=== PATIENT | female | born 1985 | race Caucasian/White ===

== ENCOUNTER 2019-04-24 15:47 | Emergency (ER) | payer BC ==
[2019-04-24] MEDS ORDERED: Sodium Chloride 0.9% 10 ML Syringe FLUSH PRN (16:12)
[2019-04-24] MEDS ORDERED: Sodium Chloride 0.9% 1,000 ML IV ONE (16:12)
[2019-04-24] MEDS ORDERED: Ondansetron 4 MG/2 ML SDV IVPUSH ONE (16:12)
--- NOTE | 2019-04-24 16:18 | EDM.PDOC ---
ED HPI GENERAL MEDICAL PROBLEM - General Chief Complaint: INTRAVENOUS THERAPY NURSE Problem Stated Complaint: 6 WEEKS PREG, DEHYDRATED Time Seen by Provider: 04/24/19 15:55 Source of Information: Reports: Patient, RN Notes Reviewed History Limitations: Reports: No Limitations - History of Present Illness INITIAL COMMENTS - FREE TEXT/NARRATIVE: Patient is a 34-year-old female who presents to the ED for the evaluation of being 6 weeks and possible dehydration. Patient states she is , this is her first . She is following with Dr. Amanda Desouza for OB. Patient notes she is around 6 weeks , and has had some portable morning sickness, she is not able to keep much for foods or fluids down. She has been trying [id number] remedies such as peppermint oil, aromatherapy, vitamin B6 and derik, none of which seem to be helping much at all. Patient states she is not having any sort of pain in her abdomen, and she is not having any sign of vaginal bleeding or urinary issues. Patient states she was in fairly good health up until the , and this has been quite rough on her. She notes she has a follow-up appointment with Dr. Desouza next week, for early OB check. Patient denies any fevers or chills that she's been having, any chest pain or shortness of breath. Left Abdominal Pain Score (Numeric/FACES): 2 - Related Data Allergies Allergy/AdvReac Type Severity Reaction Status Date / Time codeine Allergy Rash Verified 04/24/19 15:57 levothyroxine Allergy Rash Verified 04/24/19 15:57 Sulfa (Sulfonamide Allergy Rash Verified 04/24/19 15:57 Antibiotics) Home Meds: Home Meds Levothyroxine [Synthroid] 100 mcg PO DAILY 04/24/19 [History] Ondansetron [Zofran ODT] 4 mg PO Q8H PRN #21 tab.dis 04/24/19 [Rx] Pnv No.95/Ferrous Fum/Folic AC [ Multivitamin Tablet] 1 tab PO DAILY [History] Sertraline [Zoloft] 200 mg PO DAILY 04/24/19 [History] valACYclovir HCl [Valtrex] 500 pack PO DAILY 04/24/19 [History] Past Medical History INTRAVENOUS THERAPY NURSE History: Reports: Fibroids Musculoskeletal History: Reports: Other (See Below) Other Musculoskeletal History: r knee acl Endocrine/Metabolic History: Reports: Hypothyroidism - Past Surgical History HEENT Surgical History: Reports: VALERIAIK Social & Family History - Tobacco Use Smoking Status *Q: Never Smoker Second Hand Smoke Exposure: No - Caffeine Use Caffeine Use: Reports: Coffee, Energy Drinks, Soda - Recreational Drug Use Recreational Drug Use: No ED ROS GENERAL - Review of Systems Review Of Systems: See Below Constitutional: Reports: Decreased Appetite (d/t nausea and vomiting). Denies: Fever, Chills Respiratory: Denies: Shortness of Breath Cardiovascular: Denies: Chest Pain GI/Abdominal: Reports: Decreased Appetite, Nausea, Vomiting. Denies: Abdominal Pain, Constipation, Diarrhea, Hematemesis : Denies: Discharge, Dysuria, Pain Neurological: Denies: Dizziness ED EXAM - Physical Exam Exam: See Below Exam Limited By: No Limitations General Appearance: Alert, WD/WN, No Apparent Distress Eye Exam: Bilateral Eye: EOMI, Normal Inspection, PERRL Throat/Mouth: Normal Inspection, Normal Lips, Normal Teeth, Normal Gums, Normal Oropharynx, Normal Voice, No Airway Compromise Head: Atraumatic, Normocephalic Neck: Normal Inspection Respiratory/Chest: No Respiratory Distress, Lungs Clear, Normal Breath Sounds, No Accessory Muscle Use, Chest Non-Tender Cardiovascular: Normal Peripheral Pulses, Regular Rate, Rhythm, No Edema, No Murmur GI/Abdominal Exam: Normal Bowel Sounds, Soft, Non-Tender, No Distention, No Mass Heart Tones: Not Stewart Movement: Not Appreciated Extremities: Normal Inspection, Normal Capillary Refill Neurological: Alert, Oriented, Normal Cognition, No Motor/Sensory Deficits Psychiatric: Normal Affect, Normal Mood Skin Exam: Warm, Dry, Intact, Normal Color, No Rash Course - Vital Signs Last Recorded V/S: Last Vital Signs Temp 98.0 F 04/24/19 15:55 Pulse 71 04/24/19 15:55 Resp 17 04/24/19 15:55 BP 142/87 H 04/24/19 15:55 Pulse Ox 100 04/24/19 15:55 - Orders/Labs/Meds Orders: Active Orders 24 hr Category Date Time Status Peripheral IV Care [RC] . DIRECTED Care 04/24/19 16:12 Ordered Sodium Chloride 0.9% [Saline Flush] Med 04/24/19 16:12 Ordered 10 ml FLUSH ASDIRECTED PRN Peripheral IV Insertion Adult [OM.PC] Stat Oth 04/24/19 16:12 Ordered Medication Orders Sodium Chloride (Saline Flush) 10 ml FLUSH ASDIRECTED PRN PRN Reason: Keep Vein Open Last Admin: 04/24/19 16:21 Dose: 10 ml Labs: Laboratory Tests 04/24/19 04/24/19 04/24/19 Range/Units 16:11 16:11 16:23 WBC 7.38 (3.98-10.04) K/mm3 RBC 4.27 (3.98-5.22) M/mm3 Hgb 14.2 (11.2-15.7) gm/dl Hct 40.0 (34.1-44.9) % MCV 93.7 (79.4-94.8) fl MCH 33.3 H (25.6-32.2) pg MCHC 35.5 (32.2-35.5) g/dl RDW Std Deviation 39.5 (36.4-46.3) fL Plt Count 261 (182-369) K/mm3 MPV 9.7 (9.4-12.3) fl Neut % (Auto) 57.7 (34.0-71.1) % Lymph % (Auto) 27.6 (19.3-51.7) % [place] % (Auto) 13.7 H (4.7-12.5) % Eos % (Auto) 0.5 L (0.7-5.8) Baso % (Auto) 0.4 (0.1-1.2) % Neut # (Auto) 4.25 (1.56-6.13) K/mm3 Lymph # (Auto) 2.04 (1.18-3.74) K/mm3 [place] # (Auto) 1.01 H (0.24-0.36) K/mm3 Eos # (Auto) 0.04 (0.04-0.36) K/mm3 Baso # (Auto) 0.03 (0.01-0.08) K/mm3 Sodium 137 (136-145) mEq/L Potassium 3.2 L (3.5-5.1) mEq/L Chloride 103 (98-107) mEq/L Carbon Dioxide 25 (21-32) mEq/L Anion Gap 12.2 (5-15) BUN 15 (7-18) mg/dL Creatinine 0.7 (0.55-1.02) mg/dL Est Cr Clr Drug Dosing 116.11 mL/min Estimated GFR (MDRD) > 60 (>60) mL/min BUN/Creatinine Ratio 21.4 H (14-18) Glucose 88 (74-106) mg/dL Calcium 8.8 (8.5-10.1) mg/dL Total Bilirubin 0.3 (0.2-1.0) mg/dL AST 55 H (15-37) U/L ALT 107 H (14-59) U/L Alkaline Phosphatase 43 L (46-116) U/L Total Protein 7.8 (6.4-8.2) g/dl Albumin 4.1 (3.4-5.0) g/dl Globulin 3.7 gm/dL Albumin/Globulin Ratio 1.1 (1-2) Urine Color Yellow (Yellow) Urine Appearance Clear (Clear) Urine pH 5.5 (5.0-8.0) Ur Specific [place] > or = 1.030 (1.005-1.030) Urine Protein Negative (Negative) Urine Glucose (UA) Negative (Negative) Urine Ketones Negative (Negative) Urine Occult Blood Negative (Negative) Urine Nitrite Negative (Negative) Urine Bilirubin 1+ H (Negative) Urine Urobilinogen 0.2 (0.2-1.0) Ur Leukocyte Esterase Negative (Negative) Urine RBC 0-5 (0-5) /hpf Urine WBC 0-5 (0-5) /hpf Ur Epithelial Cells 0-5 (0-5) /hpf Urine Bacteria Not seen (FEW) /hpf Urine Mucus Not seen (FEW) /hpf Meds: Medications Generic Name Dose Route Start Last Admin Trade Name Freq PRN Reason Stop Dose Admin Sodium Chloride 10 ml 04/24/19 16:12 04/24/19 16:21 Saline Flush FLUSH 10 ml ASDIRECTED PRN Administration Keep Vein Open Discontinued Medications Generic Name Dose Route Start Last Admin Trade Name Freq PRN Reason Stop Dose Admin Sodium Chloride 1,000 mls @ 999 mls/hr 04/24/19 16:12 04/24/19 16:21 Normal Saline IV 04/24/19 17:12 999 mls/hr ONETIME ONE Administration Ondansetron HCl 4 mg 04/24/19 16:12 04/24/19 16:21 Zofran IVPUSH 04/24/19 16:13 4 mg ONETIME ONE Administration - Re-Assessments/Exams Free Text/Narrative Re-Assessment/Exam: 04/24/19 16:18 Patient presents to the ED for possible dehydration and being 6 weeks . Did order IV to be placed, with urinalysis, CBC and CMP for initial evaluation. I do believe this to be due to morning sickness in nature. Will give 4 mg of Zofran for initial nausea management. Will likely send the patient home with a few tabs of this so she can get through the weekend, and then have her follow up with Dr. Desouza next week. 04/24/19 17:32 Patient's labs are back, and demonstrate no focal abnormalities. Potassium was mildly low, but should be able to be regulated by diet. Will send the patient home with some Zofran, and have her follow-up with Dr. Desouza next week. Departure - Departure Time of Disposition: 17:33 Disposition: Home, Self-Care 01 Condition: Fair Clinical Impression: Nausea and vomiting during - Discharge Information *PRESCRIPTION DRUG MONITORING PROGRAM REVIEWED*: No *COPY OF PRESCRIPTION DRUG MONITORING REPORT IN PATIENT VIPUL: No Prescriptions: Ondansetron [Zofran ODT] 4 mg PO Q8H PRN #21 tab.dis PRN Reason: Nausea Instructions: Morning Sickness, [id number] Referrals: Amanda Desouza MD [Primary Care Provider] - Forms: ED Department Discharge Additional Instructions: You were evaluated in the ER today regarding your nausea and vomiting in . You were treated with a liter of fluids, and 4 mg Zofran for nausea management. This did seem to help relieve your symptoms. You have been given a prescription for Zofran, please take one tab dissolvable under your tongue every 8 hours as needed for further nausea relief. Do not exceed 3 doses in a 24-hour time span. Your laboratory evaluation demonstrated that you potassium is mildly low, that you can try to eat some bananas or other foods high in potassium over the next day or 2 to help increase this. Please keep your appointment with Dr. Desouza next week, and follow up with her if needed. Please return to the ER at any time if your symptoms change or worsen. Sepsis Event Note - Evaluation Sepsis Screening Result: No Definite Risk - Focused Exam Vital Signs: Vital Signs Temp Pulse Resp BP Pulse Ox 04/24/19 15:55 98.0 F 71 17 142/87 H 100 Date Exam was Performed: 04/24/19 Time Exam was Performed: 17:32 - My Orders Last 24 Hours: My Active Orders 04/24/19 16:12 Peripheral IV Care [RC] . DIRECTED Sodium Chloride 0.9% [Saline Flush] 10 ml FLUSH ASDIRECTED PRN Peripheral IV Insertion Adult [OM.PC] Stat - Assessment/Plan Last 24 Hours: My Active Orders 04/24/19 16:12 Peripheral IV Care [RC] . DIRECTED Sodium Chloride 0.9% [Saline Flush] 10 ml FLUSH ASDIRECTED PRN Peripheral IV Insertion Adult [OM.PC] Stat
== END 2019-04-24 18:19 | disposition home or self-care (01) ==
LOC: JD.ED 15:47
DX: O21.9 Vomiting of pregnancy, unspecified (principal); O09.511 Supervision of elderly primigravida, first trimester; O99.281 Endocrine, nutritional and metabolic diseases complicating pregnancy, first trimester; E03.9 Hypothyroidism, unspecified; Z79.890 Hormone replacement therapy; Z88.5 Allergy status to narcotic agent; Z88.8 Allergy status to other drugs, medicaments and biological substances; Z88.2 Allergy status to sulfonamides; Z3A.01 Less than 8 weeks gestation of pregnancy
CPT/HCPCS: 36415; 80053; 81001; 85025; 96361; 96374; 99284; J2405; J7030; 99283

== ENCOUNTER 2019-05-29 02:28 | Emergency (ER) | payer BC ==
[2019-05-29] MEDS ORDERED: Ondansetron 4 MG/2 ML SDV IVPUSH ONE (02:50)
--- NOTE | 2019-05-29 02:51 | EDM.PDOC ---
ED HPI GENERAL MEDICAL PROBLEM - General Chief Complaint: Gastrointestinal Problem Stated Complaint: 11 WKS PG VOMITING/DIARRHEA Time Seen by Provider: 05/29/19 02:45 Source of Information: Reports: Patient History Limitations: Reports: No Limitations - History of Present Illness INITIAL COMMENTS - FREE TEXT/NARRATIVE: 34-year-old female presents the ED with acute onset of nausea and vomiting and diarrhea starting about 1600 hrs. 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 Diarrhea came first and she's had about 3 loose watery stools and then started vomiting precipitously. She has been a keep anything down for the last 12 hours. He is 11 weeks 5 days . Didn't dizzy. Nausea is constant. She thought at first it might be just morning sickness but recognize that it's more severe than morning sickness. No hematemesis is occurred no blood in the diarrhea. Mild diffuse abdominal tenderness. Feels lightheaded dizzy and weak. No fever or chills. Has not had any diarrhea in the last 8 hours. Onset: Sudden Onset Date: 05/28/19 Onset Time: 16:00 Duration: Hour(s):, Getting Worse Location: Reports: Abdomen (Intractable nausea and vomiting. 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 Denies: Activity, Exercise (Vomiting worsens or she tries to eat at all.), Lifting, Trauma Associated Symptoms: Reports: Loss of Appetite, Malaise, Nausea/Vomiting, Other (Bilious emesis without blood loose yellow watery diarrhea without). 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 none.) - Related Data Allergies Allergy/AdvReac Type Severity Reaction Status Date / Time codeine Allergy Rash Verified 05/29/19 02:41 levothyroxine Allergy Rash Verified 05/29/19 02:41 Sulfa (Sulfonamide Allergy Rash Verified 05/29/19 02:41 Antibiotics) Home Meds: Home Meds Levothyroxine [Synthroid] 100 mcg PO DAILY 04/24/19 [History] Ondansetron [Zofran ODT] 4 mg PO Q8H PRN #21 tab.dis 04/24/19 [Rx] Pnv No.95/Ferrous Fum/Folic AC [ Multivitamin Tablet] 1 tab PO DAILY [History] Sertraline [Zoloft] 200 mg PO DAILY 04/24/19 [History] valACYclovir HCl [Valtrex] 500 pack PO DAILY 04/24/19 [History] Ondansetron [Zofran] 4 mg BUCCAL Q6H PRN #10 tab 05/29/19 [Rx] 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, : 1 Para: 0 LMP (Approximate): Other (See Below) (Currently 11 weeks 5 days .) Musculoskeletal History: Reports: Other (See Below) Other Musculoskeletal History: r knee acl Endocrine/Metabolic History: Reports: Hypothyroidism - Past Surgical History HEENT Surgical History: Reports: ZAHIDA Social & Family History - Caffeine Use Caffeine Use: Reports: Coffee, Energy Drinks, Soda - Living Situation & Occupation Living situation: Reports: 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 Denies: Fever HEENT: Reports: No Symptoms Respiratory: Reports: No Symptoms Cardiovascular: Reports: Dyspnea on Exertion Endocrine: Reports: Fatigue GI/Abdominal: Reports: Abdominal Pain (Intermittent mild crampy abdominal pain.) , Diarrhea, Nausea (Loose yellow watery diarrhea 3. Nothing in the last 8 hours ), Vomiting (Moisés nausea and intermittent vomiting she tries to eat at all. Emesis is bilious.) : Reports: Frequency Musculoskeletal: Reports: Muscle Pain Skin: Reports: No Symptoms (Mild generalized myalgia.) Neurological: Reports: Dizziness (Dizzy and lightheaded with standing.) Psychiatric: Reports: No Symptoms Hematologic/Lymphatic: Reports: No Symptoms Immunologic: Reports: No Symptoms ED EXAM, GI/ABD - Physical Exam Exam: See Below Exam Limited By: No Limitations General Appearance: Alert, WD/WN, Mild Distress, Other (Vital signs show temperature 36.6. Heart rate is 74 in sinus. BP 1 3479. Respiratory is 18 with O2 sats of 99% on room air.) Eyes: Bilateral: Normal Appearance (No scleral icterus and no peripheral pallor. ) Throat/Mouth: Normal Inspection, Normal Lips, Normal Teeth, Normal Oropharynx Head: Atraumatic, Normocephalic Neck: Normal Inspection, Supple, Non-Tender, Full Range of Motion. No: Lymphadenopathy (L), Lymphadenopathy (R) Respiratory/Chest: No Respiratory Distress, Lungs Clear, Normal Breath Sounds, No Accessory Muscle Use, Chest Non-Tender Cardiovascular: Normal Peripheral Pulses, Regular Rate, Rhythm, No Edema, No Gallop, No Murmur, No Rub GI/Abdominal Exam: Soft, Non-Tender (Mildly hyperactive bowel sounds all 4 quadrants.), No Organomegaly, No Abnormal Bruit, No Mass, Pelvis Stable, Abnormal Bowel Sounds, Other (No palpable uterus in the abdomen.) Extremities: Normal Inspection, Normal Range of Motion, Non-Tender Neurological: Alert, Oriented, CN II-XII Intact, Normal Cognition Psychiatric: Normal Affect, Normal Mood Skin Exam: Warm, Dry, Intact, Normal Color, No Rash Course - Vital Signs Last Recorded V/S: Last Vital Signs Temp 36.6 C 05/29/19 02:35 Pulse 74 05/29/19 02:35 Resp 18 05/29/19 02:35 BP 134/79 05/29/19 02:35 Pulse Ox 99 05/29/19 02:35 - Orders/Labs/Meds Orders: Active Orders 24 hr Category Date Time Status Dextrose 5%-Lactated Ringers 1,000 ml Med 05/29/19 03:00 Active IV ASDIRECTED Medication Orders Dextrose/Lactated Ringer's (Dextrose 5%-Lactated Ringers) 1,000 mls @ 999 mls/ hr IV ASDIRECTED NANDINI Last Admin: 05/29/19 03:00 Dose: 999 mls/hr Labs: Laboratory Tests 05/29/19 05/29/19 Range/Units 02:58 02:58 WBC 11.68 H (3.98-10.04) K/mm3 RBC 4.35 (3.98-5.22) M/mm3 Hgb 14.5 (11.2-15.7) gm/dl Hct 41.1 (34.1-44.9) % MCV 94.5 (79.4-94.8) fl MCH 33.3 H (25.6-32.2) pg MCHC 35.3 (32.2-35.5) g/dl RDW Std Deviation 40.9 (36.4-46.3) fL Plt Count 263 (182-369) K/mm3 MPV 9.7 (9.4-12.3) fl Neut % (Auto) 88.7 H (34.0-71.1) % Lymph % (Auto) 4.2 L (19.3-51.7) % [place] % (Auto) 6.7 (4.7-12.5) % Eos % (Auto) 0.1 L (0.7-5.8) Baso % (Auto) 0.1 (0.1-1.2) % Neut # (Auto) 10.37 H (1.56-6.13) K/mm3 Lymph # (Auto) 0.49 L (1.18-3.74) K/mm3 [place] # (Auto) 0.78 H (0.24-0.36) K/mm3 Eos # (Auto) 0.01 L (0.04-0.36) K/mm3 Baso # (Auto) 0.01 (0.01-0.08) K/mm3 Manual Slide Review Abnormal smear Sodium 138 (136-145) mEq/L Potassium 3.4 L (3.5-5.1) mEq/L Chloride 102 (98-107) mEq/L Carbon Dioxide 23 (21-32) mEq/L Anion Gap 16.4 H (5-15) BUN 19 H (7-18) mg/dL Creatinine 0.7 (0.55-1.02) mg/dL Est Cr Clr Drug Dosing 116.11 mL/min Estimated GFR (MDRD) > 60 (>60) mL/min BUN/Creatinine Ratio 27.1 H (14-18) Glucose 110 H (74-106) mg/dL Calcium 8.7 (8.5-10.1) mg/dL Total Bilirubin 0.6 (0.2-1.0) mg/dL AST 17 (15-37) U/L ALT 28 (14-59) U/L Alkaline Phosphatase 44 L (46-116) U/L Total Protein 7.4 (6.4-8.2) g/dl Albumin 3.7 (3.4-5.0) g/dl Globulin 3.7 gm/dL Albumin/Globulin Ratio 1.0 (1-2) Meds: Medications Generic Name Dose Route Start Last Admin Trade Name Louisa PRN Reason Stop Dose Admin Dextrose/Lactated Ringer's 1,000 mls @ 999 mls/hr 05/29/19 03:00 05/29/19 03: 00 Dextrose 5%-Lactated Ringers IV 999 mls/hr ASDIRECTED NANDINI Administration Discontinued Medications Generic Name Dose Route Start Last Admin Trade Name Louisa PRN Reason Stop Dose Admin Ondansetron HCl 4 mg 05/29/19 02:50 05/29/19 03:01 Zofran IVPUSH 05/29/19 02:51 4 mg ONETIME ONE Administration - Radiology Interpretation Free Text/Narrative:: 84-year-old female who is 1 para 0 at 11 weeks and 5 days presents to the ED with acute onset of nausea vomiting and diarrhea since 1600 hrs. yesterday afternoon. Her is also in the department with similar type illness. Became ill first. Likely they both appear to have viral gastroenteritis. Then she'll be rehydrated with D5 Ringer's lactate at open. Given Zofran 4 mg IV to arrest vomiting. Routine labs to be obtained. - Re-Assessments/Exams Free Text/Narrative Re-Assessment/Exam: 05/29/19 03:43 White count is 11.68 with slight left shift of 88.7% neutrophils on the auto differential. Hemoglobin is 14.5 with hematocrit of 41.1. Platelet count 263,000. Sodium 138 with potassium slightly low at 3.4. Chloride 102 with a bicarbonate 23. Anion gap is 16.4. BUN 19 with a creatinine of 0.7. GFR remains greater than 60. Glucose 110. Calcium 8.7. Liver function normal. Total protein 7.4 albumin fraction of 3.7. 05/29/19 03:59 she reports she's feeling much better. No further nausea. The cramping in her abdomen. Lab work turned out to be normal. Patient reassured in this regard. She'll stick to clear fluid diet for the next 12-24 hours and avoid dairy products and no apple juice or grape juice until stools are formed back up. Prescription written for Zofran 4 mg sublingual every 4-6 hours. As needed for relief of nausea vomiting. Return to the ED if vomiting continues in spite of medication in the next 24 hours. Departure - Departure Time of Disposition: 04:00 Disposition: Home, Self-Care 01 Condition: Fair Clinical Impression: Viral gastroenteritis, Diarrhea, Vomiting, Gastroenteritis - Discharge Information *PRESCRIPTION DRUG MONITORING PROGRAM REVIEWED*: Not Applicable *COPY OF PRESCRIPTION DRUG MONITORING REPORT IN PATIENT VIPUL: Not Applicable Prescriptions: Ondansetron [Zofran] 4 mg BUCCAL Q6H PRN #10 tab PRN Reason: nausea or vomiting Instructions: Nausea and Vomiting, Adult Referrals: Amanda Desouza MD [Primary Care Provider] - Forms: ED Department Discharge, ED Return to Work/School Form Additional Instructions: Evaluation the emergency room this morning in regards to development of acute onset of nausea vomiting and diarrhea starting about 1600 hrs. yesterday afternoon after getting home from work. Intractable nausea and vomiting has left her with volume depletion. You're therefore given a liter of D5 Ringer's lactate at open in the ED with Zofran 4 mg IV to arrest vomiting. Emend at home is clear fluids such as sips of Gatorade or Powerade which is very similar to intravenous fluids to maintain hydration. Ideally 5 ounces sipped per hour. When hungry try soda crackers first. If tolerated then suggest GM on white bread. Feels okay at any time. May then advance to broth soup such as turkey rice/chicken noodle over the next 12-24 hours. Just staying away from all dairy products and no apple juice or grape juice until stools are formed backup. It is okay to take Tylenol for headache and muscle aches if needed. May use Zofran 4 mg under your tongue every 4-6 hours necessary to relieve further nausea or vomiting. Typically the vomiting component of this illness is been lasting about 16 hours. The diarrhea depends a lot on what we taken his food. Typically clear fluid diet for another 12-24 hours usually prevents further recurrence of diarrhea. The vomiting persists in spite of medication return to the ED. Sepsis Event Note - Evaluation Sepsis Screening Result: No Definite Risk - Focused Exam Vital Signs: Vital Signs Temp Pulse Resp BP Pulse Ox 05/29/19 02:35 36.6 C 74 18 134/79 99 Date Exam was Performed: 05/29/19 Time Exam was Performed: 03:58 - My Orders Last 24 Hours: My Active Orders 05/29/19 03:00 Dextrose 5%-Lactated Ringers 1,000 ml IV ASDIRECTED - Assessment/Plan Last 24 Hours: My Active Orders 05/29/19 03:00 Dextrose 5%-Lactated Ringers 1,000 ml IV ASDIRECTED
[2019-05-29] MEDS ORDERED: Dextrose 5%-Lactated Ringers 1,000 ML IV SCH (03:00)
== END 2019-05-29 04:12 | disposition home or self-care (01) ==
LOC: JD.ED 02:28
DX: O99.89 Other specified diseases and conditions complicating pregnancy, childbirth and the puerperium (principal); A08.4 Viral intestinal infection, unspecified; O99.281 Endocrine, nutritional and metabolic diseases complicating pregnancy, first trimester; E03.9 Hypothyroidism, unspecified; Z3A.11 11 weeks gestation of pregnancy; Z79.899 Other long term (current) drug therapy; Z88.5 Allergy status to narcotic agent; Z88.1 Allergy status to other antibiotic agents; Z88.2 Allergy status to sulfonamides
CPT/HCPCS: 36415; 80053; 85025; 96361; 96374; 99284; J2405; J7121; 99283

== ENCOUNTER 2021-01-09 00:29 | Inpatient (IN) | payer BC ==
[2021-01-09] MEDS ORDERED: ceFAZolin 2 GM in Premix Bag 1 BAG IV ONE (05:28)
[2021-01-09] MEDS ORDERED: Citric Acid/Sodium Citrate Solution 30 ML Cup PO ONE (05:28)
[2021-01-09] MEDS ORDERED: Sodium Chloride 0.9% 10 ML Syringe FLUSH PRN (05:28)
[2021-01-09] MEDS ORDERED: Metoclopramide 10 MG/2 ML SDV IVPUSH ONE (05:28)
[2021-01-09] MEDS ORDERED: Oxytocin/Lactated Ringers 10 UNIT/1,000 ML BAG IV SCH (05:30)
[2021-01-09] MEDS: Lactated Ringers 1,000 ML IV SCH ×2 (06:16→07:19)
[2021-01-09] MEDS ORDERED: ceFAZolin 1 GM Vial ONE (07:01)
[2021-01-09] MEDS ORDERED: Ondansetron 4 MG/2 ML SDV ONE (07:01)
[2021-01-09] MEDS ORDERED: Oxytocin 10 Units/1 ML SDV ONE (07:01)
[2021-01-09] MEDS ORDERED: Ketorolac 30 MG/ML SDV ONE (07:01)
[2021-01-09] MEDS ORDERED: Lactated Ringers 1,000 ML ONE (07:01)
[2021-01-09] MEDS ORDERED: Morphine PF 10 MG/10 ML SDV ONE (07:02)
[2021-01-09] MEDS ORDERED: Bupivacaine 0.5% 30 ML SDV ONE (07:12)
[2021-01-09] MEDS ORDERED: ePHEDrine 50 MG/ML SDV ONE (07:46)
[2021-01-09] MEDS ORDERED: fentaNYL 100 MCG/2 ML SDV IVPUSH PRN (08:23)
[2021-01-09] MEDS ORDERED: Ondansetron 4 MG/2 ML SDV IVPUSH PRN (08:23)
[2021-01-09] MEDS ORDERED: diphenhydrAMINE 50 MG/ML SDV IVPUSH PRN ×2 (08:23→10:08)
--- NOTE | 2021-01-09 08:23 | PCM.PREANE ---
Preanesthetic Assessment - Anesthesia/Transfusion/Family Hx Anesthesia History: Prior Anesthesia Without Reaction Family History of Anesthesia Reaction: No Transfusion History: No Prior Transfusion(s) - Review of Systems General: No Symptoms (covid negative) Pulmonary: No Symptoms Cardiovascular: No Symptoms Gastrointestinal: Other (heartburn with ) Neurological: No Symptoms Other: Reports: Thyroid Problems, Depression, Anxiety - Physical Assessment NPO Status Date: 01/08/21 NPO Status Time: 23:00 Vital Signs: Last Vital Signs Temp 36.4 C 01/09/21 06:10 Pulse 68 01/09/21 06:10 Resp 16 01/09/21 06:10 BP 141/82 H 01/09/21 06:10 Pulse Ox 98 01/09/21 06:10 Height: 1.75 m Weight: 112.491 kg ASA Class: 2 Airway Class: Mallampati = 1 Dentition: Reports: Normal Dentition Thyro-Mental Finger Breadths: 3 Mouth Opening Finger Breadths: 3 ROM/Head Extension: Full Lungs: Clear to Auscultation, Normal Respiratory Effort Cardiovascular: Regular Rate, Regular Rhythm - Lab Values: Laboratory Last Values WBC 7.58 K/mm3 (3.98-10.04) 01/09/21 06:00 RBC 3.97 M/mm3 (3.98-5.22) L 01/09/21 06:00 Hgb 13.5 gm/dl (11.2-15.7) 01/09/21 06:00 Hct 39.2 % (34.1-44.9) 01/09/21 06:00 MCV 98.7 fl (79.4-94.8) H 01/09/21 06:00 MCH 34.0 pg (25.6-32.2) H 01/09/21 06:00 MCHC 34.4 g/dl (32.2-35.5) 01/09/21 06:00 RDW Std Deviation 44.0 fL (36.4-46.3) 01/09/21 06:00 Plt Count 241 K/mm3 (182-369) 01/09/21 06:00 MPV 10.8 fl (9.4-12.3) 01/09/21 06:00 Neut % (Auto) 64.5 % (34.0-71.1) 01/09/21 06:00 Lymph % (Auto) 21.5 % (19.3-51.7) 01/09/21 06:00 [place] % (Auto) 12.0 % (4.7-12.5) 01/09/21 06:00 Eos % (Auto) 1.5 (0.7-5.8) 01/09/21 06:00 Baso % (Auto) 0.4 % (0.1-1.2) 01/09/21 06:00 Neut # (Auto) 4.89 K/mm3 (1.56-6.13) 01/09/21 06:00 Lymph # (Auto) 1.63 K/mm3 (1.18-3.74) 01/09/21 06:00 [place] # (Auto) 0.91 K/mm3 (0.24-0.36) H 01/09/21 06:00 Eos # (Auto) 0.11 K/mm3 (0.04-0.36) 01/09/21 06:00 Baso # (Auto) 0.03 K/mm3 (0.01-0.08) 01/09/21 06:00 Hep Bs Antigen Nonreactive (NONREACTIVE) 01/09/21 06:00 - Allergies Allergies/Adverse Reactions: Allergies Allergy/AdvReac Type Severity Reaction Status Date / Time codeine Allergy Rash Verified 01/09/21 00:41 levothyroxine Allergy Rash Verified 01/09/21 00:41 Sulfa (Sulfonamide Allergy Rash Verified 01/09/21 00:41 Antibiotics) - Blood Blood Available: No Product(s) Available: None - Acknowledgements Anesthesia Type Planned: Spinal Pt an Appropriate Candidate for the Planned Anesthesia: Yes Alternatives and Risks of Anesthesia Discussed w Pt/Guardian: Yes Pt/Guardian Understands and Agrees with Anesthesia Plan: Yes PreAnesthesia Questionnaire Gastrointestinal History: Reports: Chronic Constipation [employer]OR History: Reports: Fibroids, Musculoskeletal History: Reports: Other (See Below) Other Musculoskeletal History: r knee acl Endocrine/Metabolic History: Reports: Hypothyroidism, Obesity/BMI 30+ - Infectious Disease History Infectious Disease History: Reports: Herpes - Past Surgical History HEENT Surgical History: Reports: LASIK, Other (See Below) Other HEENT Surgeries/Procedures: wisdom teeth Female Surgical History: Reports: Other (See Below) Other Female Surgeries/Procedures: myomectomy - SUBSTANCE USE Tobacco Use Status *Q: Never Tobacco User Second Hand Smoke Exposure: No Recreational Drug Use History: No - HOME MEDS Home Medications: Home Meds Pnv No.95/Ferrous Fum/Folic AC [ Multivitamin Tablet] 1 tab PO DAILY 04/24/19 [History] Sertraline [Zoloft] 200 mg PO DAILY 04/24/19 [History] Acyclovir [Zovirax] 1 tab PO DAILY 01/09/21 [History] Ascorbic Acid [Vitamin C] 1 tab PO DAILY 01/09/21 [History] Aspirin [Children's Aspirin] 1 tab PO DAILY 01/09/21 [History] - CURRENT (IN HOUSE) MEDS Current Meds: Current Medications Lactated Ringer's (Ringers, Lactated) 1,000 mls @ 125 mls/hr IV ASDIRECTED NANDINI Last Admin: 01/09/21 07:19 Dose: 125 mls/hr Documented by: Oxytocin/Lactated Ringer's (Pitocin In Lr 10 Units/1,000 Ml) 10 unit in 1,000 mls @ 100 mls/hr IV ASDIRECTED [facility] Sodium Chloride (Sodium Chloride 0.9% 10 Ml Syringe) 10 ml FLUSH ASDIRECTED PRN PRN Reason: Keep Vein Open Discontinued Medications Bupivacaine HCl (Bupivacaine 0.5% 30 Ml Sdv) Confirm Administered Dose 30 ml .ROUTE .STK-MED ONE Stop: 01/09/21 07:13 Cefazolin Sodium (Cefazolin 1 Gm Vial) Confirm Administered Dose 2 gm .ROUTE .S TK-MED ONE Stop: 01/09/21 07:02 Citric Acid/Sodium Citrate (Citric Acid/Sodium Citrate Solution 30 Ml Cup) 30 ml PO ONETIME ONE Stop: 01/09/21 05:29 Last Admin: 01/09/21 07:18 Dose: 30 ml Documented by: Ephedrine Sulfate (Ephedrine 50 Mg/Ml Sdv) Confirm Administered Dose 50 mg .ROUTE .STK-MED ONE Stop: 01/09/21 07:47 Cefazolin Sodium/Dextrose 2 gm (/ Premix) 50 mls @ 100 mls/hr IV ONETIME ONE Stop: 01/09/21 05:57 Lactated Ringer's (Ringers, Lactated) Confirm Administered Dose 1,000 mls @ as directed .ROUTE .STK-MED ONE Stop: 01/09/21 07:02 Ketorolac Tromethamine (Ketorolac 30 Mg/Ml Sdv) Confirm Administered Dose 30 mg .ROUTE .STK-MED ONE Stop: 01/09/21 07:02 Metoclopramide HCl (Metoclopramide 10 Mg/2 Ml Sdv) 10 mg IVPUSH ONETIME ONE Stop: 01/09/21 05:29 Last Admin: 01/09/21 07:18 Dose: 10 mg Documented by: Morphine Sulfate (Morphine Pf 10 Mg/10 Ml Sdv) Confirm Administered Dose 10 mg .ROUTE .STK-MED ONE Stop: 01/09/21 07:03 Ondansetron HCl (Ondansetron 4 Mg/2 Ml Sdv) Confirm Administered Dose 4 mg .ROUTE .STK-MED ONE Stop: 01/09/21 07:02 Oxytocin (Oxytocin 10 Units/1 Ml Sdv) Confirm Administered Dose 20 unit .ROUTE .STK-MED ONE Stop: 01/09/21 07:02
--- NOTE | 2021-01-09 08:59 | PCM.POSTAN ---
POST ANESTHESIA ASSESSMENT - MENTAL STATUS Mental Status: Alert, Oriented - VITAL SIGNS Vital Signs: Last Vital Signs Temp 36.4 C 01/09/21 06:10 Pulse 68 01/09/21 06:10 Resp 16 01/09/21 06:10 BP 141/82 H 01/09/21 06:10 Pulse Ox 98 01/09/21 06:10 - RESPIRATORY Respiratory Status: Respiratory Rate WNL, Airway Patent, O2 Saturation Stable - CARDIOVASCULAR CV Status: Pulse Rate WNL, Blood Pressure Stable - GASTROINTESTINAL GI Status: No Symptoms - PAIN Pain Score: 0 - POST OP HYDRATION Hydration Status: Adequate & Stable
--- NOTE | 2021-01-09 09:24 | PCM.OPNOTE ---
- General Post-Op/Procedure Note Date of Surgery/Procedure: 01/09/21 Operative Procedure(s): Repeat lower uterine segment transverse section through Pfannenstiel skin incision Findings: Patient had multiple uterine fibroids throughout the entire uterus enlarging uterus. Adhesions from the right side the uterus to the anterior abdominal wall. Scar present from previous myomectomies and from previous abdominal wall incision moderately dense in nature. Ovaries and fallopian tubes bilaterally appeared normal. Baby is in vertex presentation. Very mild meconium-stained amniotic fluid. No particulate matter. Cervix 1 to 2 cm dilated-adequate to allow egress of blood. Pre Op Diagnosis: 1. 38-week intrauterine . 2. History of previous . 3. History of uterine fibroids status post myomectomy Post-Op Diagnosis: Same with delivery of viable, 3480 g female infant at 0759 hrs. on 01/09/2021. Apgars of 8 and 9. Anesthesia Technique: Spinal Other Anesthesia Type: Marcaine 0.5% - 20 cc local Primary Surgeon: Cuauhtemoc Owusu Secondary Surgeon: Amanda Desouza Anesthesia Provider: Sybil Besnon Hand Touch Up Painter: Radha Cook Reason Hand Touch Up Painter Was Necessary: Retraction, Assistance, patient safety, quality of care. Fluid Replacement, Intraop: 1,900 Output, Urine Amount: 60 Drain/Tube Comments:: Indwelling bladder catheter Complications: None Condition: Good Free Text/Narrative:: Intake & Output 01/08/21 01/09/21 01/09/21 22:59 06:59 14:59 Output Total 60 Balance -60 Surgery duration: 55 minutes Surgery duration: Procedure: The patient is appropriately consented. Patient was transferred to the room and placed in a sitting position. Spinal anesthesia was administered. After confirmation of adequate anesthesia patient was placed in a supine position with a wedge under her right side to facilitate left lateral positioning. The patient was prepped and draped in usual fashion after Bass catheter was already placed . The anesthetic was checked and found to be adequate. 20 mL of Marcaine 0.5% was injected locally in the Pfannenstiel incision site. The Pfannenstiel skin incision was then made and carried down through skin, subcutaneous and fascial layers. Moderate to significant scarring is noted from previous to surgeries. Fibroids presentsee findings above. The fascia was then undermined superiorly and inferiorly to allow for adequate operating room. The recti muscles midline and preperitoneal fat was bluntly dissected. Peritoneal cavity was entered longitudinally. The vesicouterine peritoneum was then incised transversely and bladder flap was developed. Myometrium was incised transversely to the level of the amniotic sac. This incision was extended bilaterally in a blunt fashion. The amniotic sac was then ruptured resulting in clear amniotic fluid. A hand is placed in the low uterine segment and the baby's head was brought forth through the incision. The baby was completely delivered using fundal pressure in a routine fashion. The nose and mouth were bulb suctioned. Baby's cord was clamped x2 cut and baby was handed off to attending nursery nursing personnel. Placenta was expressed after cord blood was obtained. Uterus was then exteriorized to allow for easier closure. The cervix was assessed and found to be dilated adequately to allow egress of blood. The uterus was closed in 2 layers. The first layer a running locked suture of 0 Monocryl, the second layer a running locked vertical mattress suture of 0 Monocryl. Pqfxea-oz-vlaas suture was placed at the right and and above the incision to control 1 bleeder close to the fibroid present on the anterior lateral surface of the uterus.. Hemostasis confirmed at this time. Sponge instrument needle counts are correct. The uterus was returned to the abdominal cavity and lateral gutters were cleared of blood. Once again sponge needle counts are correct. The anterior abdominal wall was closed with a #1 PDS suture from angle to angle. Some subcutaneous bleeders were cauterized. Then the subcutaneous area was found to be free of any bleeders. interrupted sutures of 3-0 Monocryl were used to reapproximate the subcutaneous layer.Skin was closed with a running subcuticular stitch of 3-0 Monocryl in a vertical mattress suture fashion using a Cade needle. Prineo mesh/glue was then applied to further approximate the incision. It should be noted that patient received 2 g of Ancef preoperatively for infection prophylaxis and had Pitocin infused after delivery of the placenta to facilitate uterine contraction. She also had sequential compression stockings in place for DVT prophylaxis. Patient was discharged from the operating room in satisfactory condition.
[2021-01-09] MEDS ORDERED: Ondansetron 4 MG/2 ML SDV IV PRN (10:08)
[2021-01-09] MEDS ORDERED: Naloxone 0.4 MG/ML SDV IVPUSH PRN (10:08)
[2021-01-09] MEDS ORDERED: ePHEDrine 50 MG/ML SDV IVPUSH PRN (10:08)
[2021-01-09] MEDS ORDERED: Dextrose 5%-Lactated Ringers 1,000 ML IV SCH (10:08)
[2021-01-09] MEDS: Docusate Sodium 100 MG Cap PO SCH ×2 (10:40→21:09)
[2021-01-09] MEDS: Ibuprofen 800 MG Tab PO PRN (16:31)
[2021-01-09] MEDS: Acetaminophen/oxyCODONE 325-5 MG Tab PO PRN ×2 (16:32→21:09)
[2021-01-09] MEDS: Simethicone 80 MG Tab.Chew PO SCH ×3 (16:32→21:09)
[2021-01-10] MEDS: Ibuprofen 800 MG Tab PO PRN ×3 (00:32→16:01)
--- NOTE | 2021-01-10 07:47 | PCM.PNPP ---
- General Info Date of Service: 01/10/21 Functional Status: Reports: Pain Controlled - Review of Systems General: Reports: No Symptoms HEENT: Reports: No Symptoms Pulmonary: Reports: No Symptoms Cardiovascular: Reports: No Symptoms Gastrointestinal: Reports: No Symptoms Genitourinary: Reports: No Symptoms Musculoskeletal: Reports: No Symptoms Skin: Reports: No Symptoms Neurological: Reports: No Symptoms Psychiatric: Reports: No Symptoms - General Info Date of Service: 01/10/21 - Patient Data Vital Signs - Most Recent: Last Vital Signs Temp 36.1 C 01/10/21 00:31 Pulse 69 01/10/21 00:31 Resp 15 01/10/21 06:54 BP 122/84 01/10/21 00:31 Pulse Ox 99 01/10/21 06:54 Weight - Most Recent: 112.491 kg I&O - Last 24 Hours: Intake & Output 01/09/21 01/10/21 01/10/21 22:59 06:59 14:59 Intake Total 2440 2 Output Total 728 1283 Balance 1712 -1281 Lab Results - Last 24 Hours: Laboratory Results - last 24 hr 01/09/21 01/09/21 01/09/21 Range/Units 06:00 06:00 06:00 WBC (3.98-10.04) K/mm3 RBC (3.98-5.22) M/mm3 Hgb (11.2-15.7) gm/dl Hct (34.1-44.9) % MCV (79.4-94.8) fl MCH (25.6-32.2) pg MCHC (32.2-35.5) g/dl RDW Std Deviation (36.4-46.3) fL Plt Count (182-369) K/mm3 MPV (9.4-12.3) fl Neut % (Auto) (34.0-71.1) % Lymph % (Auto) (19.3-51.7) % [place] % (Auto) (4.7-12.5) % Eos % (Auto) (0.7-5.8) Baso % (Auto) (0.1-1.2) % Neut # (Auto) (1.56-6.13) K/mm3 Lymph # (Auto) (1.18-3.74) K/mm3 [place] # (Auto) (0.24-0.36) K/mm3 Eos # (Auto) (0.04-0.36) K/mm3 Baso # (Auto) (0.01-0.08) K/mm3 RPR Non-reactive (NONREACTIVE) Hep Bs Antigen Nonreactive (NONREACTIVE) Blood Type A NEGATIVE Gel Antibody Screen Negative Screen 1 ros/5 flds - neg RhIG Candidate? Yes 01/10/21 Range/Units 05:59 WBC 10.13 H (3.98-10.04) K/mm3 RBC 3.13 L (3.98-5.22) M/mm3 Hgb 10.6 L D (11.2-15.7) gm/dl Hct 31.4 L (34.1-44.9) % MCV 100.3 H (79.4-94.8) fl MCH 33.9 H (25.6-32.2) pg MCHC 33.8 (32.2-35.5) g/dl RDW Std Deviation 44.0 (36.4-46.3) fL Plt Count 194 (182-369) K/mm3 MPV 11.2 (9.4-12.3) fl Neut % (Auto) 73.1 H (34.0-71.1) % Lymph % (Auto) 12.6 L (19.3-51.7) % [place] % (Auto) 12.3 (4.7-12.5) % Eos % (Auto) 1.7 (0.7-5.8) Baso % (Auto) 0.1 (0.1-1.2) % Neut # (Auto) 7.40 H (1.56-6.13) K/mm3 Lymph # (Auto) 1.28 (1.18-3.74) K/mm3 [place] # (Auto) 1.25 H (0.24-0.36) K/mm3 Eos # (Auto) 0.17 (0.04-0.36) K/mm3 Baso # (Auto) 0.01 (0.01-0.08) K/mm3 RPR (NONREACTIVE) Hep Bs Antigen (NONREACTIVE) Blood Type Gel Antibody Screen Screen RhIG Candidate? Med Orders - Current: Current Medications Diphenhydramine HCl (Diphenhydramine 50 Mg/Ml Sdv) 25 mg IVPUSH Q6H PRN PRN Reason: Itching or Nausea Docusate Sodium (Docusate Sodium 100 Mg Cap) 100 mg PO Q12H [facility] Last Admin: 01/09/21 21:09 Dose: 100 mg Documented by: Ephedrine Sulfate (Ephedrine 50 Mg/Ml Sdv) 5 mg IVPUSH SEECOMMENT PRN PRN Reason: Other Ibuprofen (Ibuprofen 800 Mg Tab) 800 mg PO Q8H PRN PRN Reason: mild pain or fever Last Admin: 01/10/21 00:32 Dose: 800 mg Documented by: Naloxone HCl (Naloxone 0.4 Mg/Ml Sdv) 0.1 mg IVPUSH SEECOMMENT PRN PRN Reason: Respiratory Depression Ondansetron HCl (Ondansetron 4 Mg/2 Ml Sdv) 4 mg IV Q4H PRN PRN Reason: Nausea/Vomiting Oxycodone/Acetaminophen (Acetaminophen/Oxycodone 325-5 Mg Tab) 1 tab PO Q4H PRN PRN Reason: Pain (moderate 4-6) Last Admin: 01/09/21 21:09 Dose: 1 tab Documented by: Oxycodone/Acetaminophen (Acetaminophen/Oxycodone 325-5 Mg Tab) 2 tab PO Q4H PRN PRN Reason: Pain (severe 7-10) Last Admin: 01/09/21 16:32 Dose: 2 tab Documented by: Prenat Multivit/Heliotherapist/Iron/Folic Ac ( Multivitamin With Calcium/Folic Acid/Iron Tab) 1 each PO DAILY [facility] Sertraline HCl (Sertraline 50 Mg Tab) 200 mg PO DAILY [facility] Simethicone (Simethicone 80 Mg Tab.Chew) 160 mg PO QID [facility] Last Admin: 01/09/21 21:09 Dose: 160 mg Documented by: Discontinued Medications Bupivacaine HCl (Bupivacaine 0.5% 30 Ml Sdv) Confirm Administered Dose 30 ml .ROUTE .STK-MED ONE Stop: 01/09/21 07:13 Last Admin: 01/09/21 07:53 Dose: 20 ml Documented by: Cefazolin Sodium (Cefazolin 1 Gm Vial) Confirm Administered Dose 2 gm .ROUTE .STK-MED ONE Stop: 01/09/21 07:02 Citric Acid/Sodium Citrate (Citric Acid/Sodium Citrate Solution 30 Ml Cup) 30 ml PO ONETIME ONE Stop: 01/09/21 05:29 Last Admin: 01/09/21 07:18 Dose: 30 ml Documented by: Diphenhydramine HCl (Diphenhydramine 50 Mg/Ml Sdv) 25 mg IVPUSH Q6H PRN PRN Reason: itching Ephedrine Sulfate (Ephedrine 50 Mg/Ml Sdv) Confirm Administered Dose 0 mg .ROUTE .STK-MED ONE Stop: 01/09/21 07:47 Fentanyl (Fentanyl 100 Mcg/2 Ml Sdv) 50 mcg IVPUSH Q5M PRN PRN Reason: Pain Lactated Ringer's (Ringers, Lactated) 1,000 mls @ 125 mls/hr IV ASDIRECTED [facility] Last Admin: 01/09/21 07:19 Dose: 125 mls/hr Documented by: Cefazolin Sodium/Dextrose 2 gm (/ Premix) 50 mls @ 100 mls/hr IV ONETIME ONE Stop: 01/09/21 05:57 Oxytocin/Lactated Ringer's (Pitocin In Lr 10 Units/1,000 Ml) 10 unit in 1,000 mls @ 100 mls/hr IV ASDIRECTED [facility] Lactated Ringer's (Ringers, Lactated) Confirm Administered Dose 1,000 mls @ as directed .ROUTE .STK-MED ONE Stop: 01/09/21 07:02 Dextrose/Lactated Ringer's (Dextrose 5%-Lactated Ringers) 1,000 mls @ 125 mls[facility] Stop: 01/09/21 18:07 Last Admin: 01/09/21 10:43 Dose: 125 mls/hr Documented by: Ketorolac Tromethamine (Ketorolac 30 Mg/Ml Sdv) Confirm Administered Dose 30 mg .ROUTE .STK-MED ONE Stop: 01/09/21 07:02 Metoclopramide HCl (Metoclopramide 10 Mg/2 Ml Sdv) 10 mg IVPUSH ONETIME ONE Stop: 01/09/21 05:29 Last Admin: 01/09/21 07:18 Dose: 10 mg Documented by: Morphine Sulfate (Morphine Pf 10 Mg/10 Ml Sdv) Confirm Administered Dose 10 mg .ROUTE .STK-MED ONE Stop: 01/09/21 07:03 Ondansetron HCl (Ondansetron 4 Mg/2 Ml Sdv) Confirm Administered Dose 4 mg .ROU TE .STK-MED ONE Stop: 01/09/21 07:02 Ondansetron HCl (Ondansetron 4 Mg/2 Ml Sdv) 4 mg IVPUSH ONETIME PRN PRN Reason: Nausea/Vomiting Oxytocin (Oxytocin 10 Units/1 Ml Sdv) Confirm Administered Dose 20 unit .ROUTE .STK-MED ONE Stop: 01/09/21 07:02 Sodium Chloride (Sodium Chloride 0.9% 10 Ml Syringe) 10 ml FLUSH ASDIRECTED PRN PRN Reason: Keep Vein Open - Infant Interaction Support Person: - Recovery Exam Fundal Tone: Firm Fundal Level: At Umbilicus Fundal Placement: Midline Lochia Amount: Small Lochia Color: Rubra/Red Perineum Description: Intact, Minimal Bruising/Swelling Bladder Status: Indwelling Catheter in Place Urinary Elimination: Indwelling Catheter - Exam General: Alert, Oriented HEENT: Pupils Equal Neck: Supple Lungs: Clear to Auscultation, Normal Respiratory Effort Cardiovascular: Regular Rate, Regular Rhythm GI/Abdominal Exam: Normal Bowel Sounds, Soft, Non-Tender, No Organomegaly, No Distention, No Abnormal Bruit, No Mass, Pelvis Stable Skin: Warm, Dry, Intact Wound/Incisions: Healing Well Neurological: No New Focal Deficit Psy/Mental Status: Alert, Normal Affect, Normal Mood - Problem List Review Problem List Initiated/Reviewed/Updated: Yes - Assessment Assessment:: Doing well PPD1 No issues. Likely home tomorrow
--- NOTE | 2021-01-10 07:54 | PCM48HPAN ---
Post Anesthesia Note - EVALUATION WITHIN 48HRS OF ANESTHETIC Vital Signs in Normal Range: Yes Patient Participated in Evaluation: Yes Respiratory Function Stable: Yes Airway Patent: Yes Cardiovascular Function Stable: Yes Hydration Status Stable: Yes Pain Control Satisfactory: Yes Nausea and Vomiting Control Satisfactory: Yes Mental Status Recovered: Yes Vital Signs: Last Vital Signs Temp 97.0 F 01/10/21 00:31 Pulse 69 01/10/21 00:31 Resp 15 01/10/21 06:54 BP 122/84 01/10/21 00:31 Pulse Ox 99 01/10/21 06:54 - COMMENTS/OBSERVATIONS Free Text/Narrative:: Patient resting in bed when visiting with patient. Patient stated that she was "very happy" with her spinal and experience. Patient complained of mild back pain located at spinal placement site but is very mild and has not gotten worse. Discussed signs and symptoms of infection, post-dural puncture headache, post- depression, and if patient experiences increased back discomfort. Encouraged patient if any of those signs or symptoms develop to contact OB/Anesthesia so the patient can be treated accordingly if needed. Patient verbalized understanding. Patient did not voice any questions or concerns at this time. Yani Hartley, MANAGEMENT TRAINEE
[2021-01-10] MEDS: Prenatal Multivitamin with Calcium/Folic Acid/Iron Tab PO SCH (08:14)
[2021-01-10] MEDS: Simethicone 80 MG Tab.Chew PO SCH ×4 (08:15→20:47)
[2021-01-10] MEDS: Acetaminophen/oxyCODONE 325-5 MG Tab PO PRN ×4 (08:20→21:20)
[2021-01-10] MEDS ORDERED: Sertraline 50 MG Tab PO SCH (09:00)
[2021-01-10] MEDS: Docusate Sodium 100 MG Cap PO SCH ×3 (11:27→22:21)
[2021-01-11] MEDS: Ibuprofen 800 MG Tab PO PRN ×2 (00:07→08:13)
[2021-01-11] MEDS: Acetaminophen/oxyCODONE 325-5 MG Tab PO PRN ×2 (02:42→06:45)
[2021-01-11] MEDS: Simethicone 80 MG Tab.Chew PO SCH (08:13)
[2021-01-11] MEDS: Prenatal Multivitamin with Calcium/Folic Acid/Iron Tab PO SCH (08:13)
--- NOTE | 2021-01-11 09:47 | PCM.SN.2 ---
- Free Text/Narrative Note: Post Operative Progress Note POD #2 Subjective: Doing well overall. Ambulating without difficulty. Lochia minimal. Voiding without difficulty. Passing flatus but has not had a bowel movement at this time. Tolerating regular diet without nausea or vomiting. Pain controlled with oral medications. Reports that she is having some mild cramping with breast- feeding and also mild pain at the incision but it is overall tolerable and improved with the medications. Breast-feeding with minimal difficulty. Objective: Vitals: Vital Signs - 24 hr 01/10/01/10/21 01/10/21 16:04 21:14 21:43 Temperature 36.4 C 36.2 C Pulse, 79 74 Peripheral Respiratory 15 12 Rate Blood Pressure 149/77 H 144/90 H 133/77 O2 Sat by Pulse 98 98 Oximetry 01/11/01/11/21 02:00 07:47 Temperature 36.3 C 36.3 C Pulse, 75 69 Peripheral Respiratory 16 14 Rate Blood Pressure 128/84 132/81 O2 Sat by Pulse 100 99 Oximetry Physical Exam General: Alert and oriented, no acute distress Lungs: Clear to auscultation bilaterally Heart: Regular rate and rhythm Abdomen: Soft, minimal appropriate tenderness, non-distended, fundus midline, nontender and at the umbilicus Incision: Clean, dry and intact, no erythema, bleeding or drainage with Prineo dressing in place Extremities: Trace edema in bilateral lower extremities to her feet, no calf tenderness bilaterally ASSESSMENT: 35-year-old female -0-0-2 s/p repeat section POD #2 for history of section, complicated by gestational hypertension, history of preeclampsia, history of premature delivery at 29 weeks gestational age, advanced maternal age and Rh- status PLAN: Doing well Breast-feeding with minimal difficulty. Assist as needed Incision healing well. Continue to keep clean and dry. Lochia minimal. Continue to monitor for appropriate lochia. Continue routine post-operative care Patient with a negative blood type and infant with a positive blood type. She received RhoGam on POD #1. Anticipate discharge home today Didier Rg MD 9:43 AM 01/11/2021
--- NOTE | 2021-01-11 09:53 | PCM.DCSUM1 ---
Discharge Summary - Hospital Course Free Text/Narrative:: Procedure: The patient is appropriately consented. Patient was transferred to the room and placed in a sitting position. Spinal anesthesia was administered. After confirmation of adequate anesthesia patient was placed in a supine position with a wedge under her right side to facilitate left lateral positioning. The patient was prepped and draped in usual fashion after Bass catheter was already placed . The anesthetic was checked and found to be adequate. 20 mL of Marcaine 0.5% was injected locally in the Pfannenstiel incision site. The Pfannenstiel skin incision was then made and carried down through skin, subcutaneous and fascial layers. Moderate to significant scarring is noted from previous to surgeries. Fibroids presentsee findings above. The fascia was then undermined superiorly and inferiorly to allow for adequate operating room. The recti muscles midline and preperitoneal fat was bluntly dissected. Peritoneal cavity was entered longitudinally. The vesicouterine peritoneum was then incised transversely and bladder flap was developed. Myometrium was incised transversely to the level of the amniotic sac. This incision was extended bilaterally in a blunt fashion. The amniotic sac was then ruptured resulting in clear amniotic fluid. A hand is placed in the low uterine segment and the baby's head was brought forth through the incision. The baby was completely delivered using fundal pressure in a routine fashion. The nose and mouth were bulb suctioned. Baby's cord was clamped x2 cut and baby was handed off to attending nursery nursing personnel. Placenta was expressed after cord blood was obtained. Uterus was then exteriorized to allow for easier closure. The cervix was assessed and found to be dilated adequately to allow egress of blood. The uterus was closed in 2 layers. The first layer a running locked suture of 0 Monocryl, the second layer a running locked vertical mattress suture of 0 Monocryl. [id number] suture was placed at the right and and above the incision to control 1 bleeder close to the fibroid present on the anterior lateral surface of the uterus.. Hemostasis confirmed at this time. Sponge instrument needle counts are correct. The uterus was returned to the abdominal cavity and lateral gutters were cleared of blood. Once again sponge needle counts are correct. The anterior abdominal wall was closed with a #1 PDS suture from angle to angle. Some subcutaneous bleeders were cauterized. Then the subcutaneous area was found to be free of any bleeders. interrupted sutures of 3-0 Monocryl were used to reapproximate the subcutaneous layer.Skin was closed with a running subcuticular stitch of 3-0 Monocryl in a vertical mattress suture fashion using a Cade needle. Prineo mesh/glue was then applied to further approximate the incision. It should be noted that patient received 2 g of Ancef preoperatively for infection prophylaxis and had Pitocin infused after delivery of the placenta to facilitate uterine contraction. She also had sequential compression stockings in place for DVT prophylaxis. Patient was discharged from the operating room in satisfactory condition. Diagnosis: Stroke: No - Discharge Data Discharge Date: 01/11/21 Discharge Disposition: Home, Self-Care 01 Condition: Good - Referral to Home Health Primary Care Physician: Cuauhtemoc Owusu MD - Discharge Diagnosis/Problem(s) (1) 38 weeks gestation of SNOMED Code(s): 21492102 ICD Code: Z3A.38 - 38 WEEKS GESTATION OF Status: Acute Current Visit: Yes (2) delivery delivered SNOMED Code(s): 984570973 ICD Code: O82 - ENCOUNTER FOR DELIVERY WITHOUT INDICATION Status: Acute Current Visit: Yes (3) History of pre-eclampsia SNOMED Code(s): 093016848596209 ICD Code: Z87.59 - PERSONAL HISTORY OF COMP OF PREG, CHLDBRTH AND THE PUERP Status: Acute Current Visit: No (4) Previous section complicating SNOMED Code(s): 301467843, 922649991 ICD Code: O34.219 - MATERNAL CARE FOR UNSP TYPE SCAR FROM PREVIOUS DEL Status: Acute Current Visit: No (5) Rh negative status during SNOMED Code(s): 449214162 ICD Code: O26.899 - OTH RELATED CONDITIONS, UNSPECIFIED TRIMESTER; Z67.91 - UNSPECIFIED BLOOD TYPE, RH NEGATIVE Status: Acute Current Visit: No - Patient Summary/Data Operative Procedure(s) Performed: Repeat lower uterine segment transverse section through Pfannenstiel skin incision Complications: None Hospital Course: Alisha Johnson was admitted for repeat section. She was taken back to the OR and given spinal injection for anesthesia. She was given Ancef 2 g IV for antibiotic prophylaxis. She was prepped and draped in the normal fashion. On 01/09/2021 she had a normal repeat delivery of a live female infant at 07:59. Apgars of eight and nine. Weight of 3480 g (7 pounds 10.8 ounces). She was closed in a normal fashion. There were no complications with the procedure. Please see the operative report for full details. Her post operative course was uneventful. Her pain was well controlled and she had minimal lochia. She was ambulating, tolerating a regular diet and voiding normally. She was passing flatus and has not had a bowel movement. She was breast feeding without difficulty. She was afebrile and her hematocrit was 31.4 on POD #1. She desired to be discharged home on the morning of POD #2. Her blood type is A- and infant has A+ blood type. She received RhoGam on POD #1. Patient had mild range blood pressures that did not require treatment. Patient to follow-up for routine blood pressure and check within 1 week after delivery for ongoing monitoring. - Patient Instructions Diet: Regular Diet as Tolerated Activity: Apply Ice, As Tolerated, No Lifting Over 20 Pounds Activity, Other: Nothing in the vagina for 6 weeks Driving: Do Not Drive (While taking narcotic medications or having significant pain) Showering/Bathing: May Shower Wound/Incision Care: Keep Operative Site/Wound Site Clean and Dry Notify Provider of: Fever, Increased Pain, Swelling and Redness, Drainage, Nausea and/or Vomiting Other/Special Instructions: Please contact your physician's office if you note any bleeding or pus coming from the abdominal incision. Please contact your physician's office if you have heavy vaginal bleeding enough to soak a pad in less than an hour for several hours. Monitor for any signs of an infection in the breasts with severe pain or redness of the breast. Please contact your physician's office if you have a severe headache that does not improve with Tylenol or ibuprofen, spots in your vision or severe pain in your upper abdomen. - Discharge Plan *PRESCRIPTION DRUG MONITORING PROGRAM REVIEWED*: Yes *COPY OF PRESCRIPTION DRUG MONITORING REPORT IN PATIENT VIPUL: No Prescriptions/Med Rec: Acetaminophen/oxyCODONE [Percocet 325-5 MG] 1 - 2 tab PO Q4H PRN #30 tablet PRN Reason: Pain Home Medications: Home Meds Pnv No.95/Ferrous Fum/Folic AC [ Multivitamin Tablet] 1 tab PO DAILY 04/24/19 [History] Sertraline [Zoloft] 200 mg PO DAILY 04/24/19 [History] Acyclovir [Zovirax] 1 tab PO DAILY 01/09/21 [History] Ascorbic Acid [Vitamin C] 1 tab PO DAILY 01/09/21 [History] Acetaminophen/oxyCODONE [Percocet 325-5 MG] 1 - 2 tab PO Q4H PRN #30 tablet 01/11/21 [Rx] Docusate Sodium [Colace] 100 mg PO Q12H cap 01/11/21 [Rx] Ibuprofen [Motrin] 800 mg PO Q8H PRN tablet 01/11/21 [Rx] Simethicone 160 mg PO QID tab.chew 01/11/21 [Rx] Patient Handouts: Care After Delivery Referrals: Cuauhtemoc Owusu MD [Primary Care Provider] - (Follow-up in 1 week for blood pressure check as well as routine check or earlier as needed.) - Discharge Summary/Plan Comment DC Time >30 min.: No Total # of Minutes for Discharge Time: 20 minutes - Patient Data Vitals - Most Recent: Last Vital Signs Temp 36.3 C 01/11/21 07:47 Pulse 69 01/11/21 07:47 Resp 14 01/11/21 07:47 BP 132/81 01/11/21 07:47 Pulse Ox 99 01/11/21 07:47 Weight - Most Recent: 112.491 kg I&O - Last 24 hours: Intake & Output 01/10/21 01/11/21 01/11/21 22:59 06:59 14:59 Intake Total 320 Balance 320 Med Orders - Current: Current Medications Diphenhydramine HCl (Diphenhydramine 50 Mg/Ml Sdv) 25 mg IVPUSH Q6H PRN PRN Reason: Itching or Nausea Docusate Sodium (Docusate Sodium 100 Mg Cap) 100 mg PO Q12H NANDINI Last Admin: 01/10/21 22:21 Dose: Not Given Documented by: Ephedrine Sulfate (Ephedrine 50 Mg/Ml Sdv) 5 mg IVPUSH SEECOMMENT PRN PRN Reason: Other Ibuprofen (Ibuprofen 800 Mg Tab) 800 mg PO Q8H PRN PRN Reason: mild pain or fever Last Admin: 01/11/21 08:13 Dose: 800 mg Documented by: Naloxone HCl (Naloxone 0.4 Mg/Ml Sdv) 0.1 mg IVPUSH SEECOMMENT PRN PRN Reason: Respiratory Depression Ondansetron HCl (Ondansetron 4 Mg/2 Ml Sdv) 4 mg IV Q4H PRN PRN Reason: Nausea/Vomiting Oxycodone/Acetaminophen (Acetaminophen/Oxycodone 325-5 Mg Tab) 1 tab PO Q4H PRN PRN Reason: Pain (moderate 4-6) Last Admin: 01/11/21 06:45 Dose: 1 tab Documented by: Oxycodone/Acetaminophen (Acetaminophen/Oxycodone 325-5 Mg Tab) 2 tab PO Q4H PRN PRN Reason: Pain (severe 7-10) Last Admin: 01/11/21 02:42 Dose: 2 tab Documented by: Prenat Multivit/[place]/Iron/Folic Ac ( Multivitamin With Calcium/Folic Acid/Iron Tab) 1 each PO DAILY [facility] Last Admin: 01/11/21 08:13 Dose: 1 each Documented by: Sertraline HCl (Sertraline 50 Mg Tab) 200 mg PO DAILY [facility] Last Admin: 01/10/21 11:44 Dose: Not Given Documented by: Simethicone (Simethicone 80 Mg Tab.Chew) 160 mg PO QID [facility] Last Admin: 01/11/21 08:13 Dose: 160 mg Documented by: Discontinued Medications Bupivacaine HCl (Bupivacaine 0.5% 30 Ml Sdv) Confirm Administered Dose 30 ml .ROUTE .STK-MED ONE Stop: 01/09/21 07:13 Last Admin: 01/09/21 07:53 Dose: 20 ml Documented by: Cefazolin Sodium (Cefazolin 1 Gm Vial) Confirm Administered Dose 2 gm .ROUTE .STK-MED ONE Stop: 01/09/21 07:02 Citric Acid/Sodium Citrate (Citric Acid/Sodium Citrate Solution 30 Ml Cup) 30 ml PO ONETIME ONE Stop: 01/09/21 05:29 Last Admin: 01/09/21 07:18 Dose: 30 ml Documented by: Diphenhydramine HCl (Diphenhydramine 50 Mg/Ml Sdv) 25 mg IVPUSH Q6H PRN PRN Reason: itching Ephedrine Sulfate (Ephedrine 50 Mg/Ml Sdv) Confirm Administered Dose 0 mg .ROUTE .STK-MED ONE Stop: 01/09/21 07:47 Fentanyl (Fentanyl 100 Mcg/2 Ml Sdv) 50 mcg IVPUSH Q5M PRN PRN Reason: Pain Lactated Ringer's (Ringers, Lactated) 1,000 mls @ 125 mls/hr IV ASDIRECTED [facility] Last Admin: 01/09/21 07:19 Dose: 125 mls/hr Documented by: Cefazolin Sodium/Dextrose 2 gm (/ Premix) 50 mls @ 100 mls/hr IV ONETIME ONE Stop: 01/09/21 05:57 Oxytocin/Lactated Ringer's (Pitocin In Lr 10 Units/1,000 Ml) 10 unit in 1,000 mls @ 100 mls/hr IV ASDIRECTED [facility] Lactated Ringer's (Ringers, Lactated) Confirm Administered Dose 1,000 mls @ as directed .ROUTE .[facility]-MED ONE Stop: 01/09/21 07:02 Dextrose/Lactated Ringer's (Dextrose 5%-Lactated Ringers) 1,000 mls @ 125 mls/hr IV ASDIRECTED [facility] Stop: 01/09/21 18:07 Last Admin: 01/09/21 10:43 Dose: 125 mls/hr Documented by: Ketorolac Tromethamine (Ketorolac 30 Mg/Ml Sdv) Confirm Administered Dose 30 mg .ROUTE .STK-MED ONE Stop: 01/09/21 07:02 Metoclopramide HCl (Metoclopramide 10 Mg/2 Ml Sdv) 10 mg IVPUSH ONETIME ONE Stop: 01/09/21 05:29 Last Admin: 01/09/21 07:18 Dose: 10 mg Documented by: Morphine Sulfate (Morphine Pf 10 Mg/10 Ml Sdv) Confirm Administered Dose 10 mg .ROUTE .STK-MED ONE Stop: 01/09/21 07:03 Ondansetron HCl (Ondansetron 4 Mg/2 Ml Sdv) Confirm Administered Dose 4 mg .ROUTE .STK-MED ONE Stop: 01/09/21 07:02 Ondansetron HCl (Ondansetron 4 Mg/2 Ml Sdv) 4 mg IVPUSH ONETIME PRN PRN Reason: Nausea/Vomiting Oxytocin (Oxytocin 10 Units/1 Ml Sdv) Confirm Administered Dose 20 unit .ROUTE .STK-MED ONE Stop: 01/09/21 07:02 Sodium Chloride (Sodium Chloride 0.9% 10 Ml Syringe) 10 ml FLUSH ASDIRECTED PRN PRN Reason: Keep Vein Open
== END 2021-01-11 11:20 | disposition home or self-care (01) | DRG 540 ==
LOC: JD.OBCHECK 00:29 → JD.OB 00:30 → JD.OBCHECK 05:28
PROVIDERS: ADMIT Obstetrics & Gynecology; ATTEND Obstetrics & Gynecology
PROC: 10D00Z1 Extraction of Products of Conception, Low, Open Approach (ICD-10-PCS; principal; 2021-01-09)
PROC: 3E0334Z Introduction of Serum, Toxoid and Vaccine into Peripheral Vein, Percutaneous Approach (ICD-10-PCS; 2021-01-09)
DX: O34.211 Maternal care for low transverse scar from previous cesarean delivery (principal); Z37.0 Single live birth; O99.284 Endocrine, nutritional and metabolic diseases complicating childbirth; O99.344 Other mental disorders complicating childbirth; F41.9 Anxiety disorder, unspecified; F42.9 Obsessive-compulsive disorder, unspecified; O99.62 Diseases of the digestive system complicating childbirth; K59.09 Other constipation; O34.13 Maternal care for benign tumor of corpus uteri, third trimester; D25.9 Leiomyoma of uterus, unspecified; O77.0 Labor and delivery complicated by meconium in amniotic fluid; E03.9 Hypothyroidism, unspecified; O26.893 Other specified pregnancy related conditions, third trimester; Z3A.38 38 weeks gestation of pregnancy; Z88.5 Allergy status to narcotic agent; Z88.2 Allergy status to sulfonamides; Z79.890 Hormone replacement therapy; Z79.899 Other long term (current) drug therapy; Z67.11 Type A blood, Rh negative
CPT/HCPCS: 01961; 36415; 59025; 85025; 85461; 86592; 86850; 86900; 86901; 87340; A9270-GY; J0690; J1885; J2270; J2405; J2590; J2765; J2790; J3490; J7120; J7121

== ENCOUNTER 2022-10-09 05:14 | Inpatient (IN) | payer BC ==
[2022-10-09] MEDS ORDERED: Citric Acid/Sodium Citrate Solution 30 ML Cup PO ONE (05:16)
[2022-10-09] MEDS ORDERED: Metoclopramide 10 MG/2 ML SDV IVPUSH ONE (05:16)
[2022-10-09] MEDS ORDERED: Sodium Chloride 0.9% 10 ML Syringe FLUSH PRN (05:16)
[2022-10-09] MEDS ORDERED: Oxytocin/Lactated Ringers 10 UNIT/1,000 ML BAG IV SCH (05:30)
[2022-10-09] MEDS ORDERED: Lactated Ringers 1,000 ML IV SCH (05:30)
[2022-10-09 06:43] LABS: BASOPHILS ABSOLUTE AUTO 0.04 K/mm3 (0.01-0.08); BASOPHILS PERCENT AUTO 0.5 % (0.1-1.2); EOSINOPHILS ABSOLUTE AUTO 0.13 K/mm3 (0.04-0.36); EOSINOPHILS PERCENT AUTO 1.6 (0.7-5.8); HEMATOCRIT 36.6 % (34.1-44.9); HEMOGLOBIN 12.6 gm/dl (11.2-15.7); IMMATURE GRAN ABSOLUTE AUTO 0.01 K/mm3 (0.00-0.10); IMMATURE GRAN PERCENT AUTO 0.1 % (<=1.0); LYMPHOCYTES ABSOLUTE AUTO 1.86 K/mm3 (1.18-3.74); LYMPHOCYTES PERCENT AUTO 23.4 % (19.3-51.7); MEAN CORPUSCULAR HEMOGLOBIN 33.8 pg (25.6-32.2); MEAN CORPUSCULAR HGB CONC 34.4 g/dl (32.2-35.5); MEAN CORPUSCULAR VOLUME 98.1 fl (79.4-94.8); MEAN PLATELET VOLUME 10.8 fl (9.4-12.3); MONOCYTES ABSOLUTE AUTO 1.08 K/mm3 (0.24-0.36); MONOCYTES PERCENT AUTO 13.6 % (4.7-12.5); NEUTROPHILS ABSOLUTE AUTO 4.84 K/mm3 (1.56-6.13); NEUTROPHILS PERCENT AUTO 60.8 % (34.0-71.1); PLATELET COUNT,PLT 256 K/mm3 (182-369); RED BLOOD CELL COUNT 3.73 M/mm3 (3.98-5.22); WHITE BLOOD CELL COUNT,WBC 7.96 K/mm3 (3.98-10.04)
[2022-10-09] MEDS ORDERED: ePHEDrine 50 MG/ML SDV ONE (07:23)
[2022-10-09] MEDS ORDERED: Morphine PF 1 MG/ML Amp ONE (07:23)
[2022-10-09] MEDS ORDERED: Oxytocin 10 Units/1 ML SDV ONE ×2 (07:23→09:20)
[2022-10-09] MEDS ORDERED: Bupivacaine 0.5% 30 ML SDV ONE (07:24)
[2022-10-09] MEDS ORDERED: ceFAZolin 2 GM Vial ONE (07:53)
[2022-10-09] MEDS ORDERED: Ondansetron 4 MG/2 ML SDV IVPUSH PRN (08:29)
[2022-10-09] MEDS ORDERED: fentaNYL 100 MCG/2 ML SDV IVPUSH PRN (08:29)
[2022-10-09] MEDS ORDERED: diphenhydrAMINE 50 MG/ML SDV IVPUSH PRN ×2 (08:29→11:25)
[2022-10-09] MEDS ORDERED: Ketorolac 30 MG/ML SDV ONE (08:51)
[2022-10-09] MEDS ORDERED: Sodium Chloride 0.9% 10 ML Syringe FLUSH SCH (09:00)
[2022-10-09] MEDS ORDERED: Dexmedetomidine 200 MCG/2 ML SDV ONE (09:14)
[2022-10-09] MEDS ORDERED: Magnesium Hydroxide 400 MG/5 ML Susp 30 ML Cup PO PRN (11:25)
[2022-10-09] MEDS ORDERED: Naloxone 0.4 MG/ML SDV IVPUSH PRN (11:25)
[2022-10-09] MEDS ORDERED: Dextrose 5%-Lactated Ringers 1,000 ML IV SCH (11:25)
[2022-10-09] MEDS ORDERED: ePHEDrine 50 MG/ML SDV IVPUSH PRN (11:25)
[2022-10-09] MEDS: Ketorolac 30 MG/ML SDV IVPUSH SCH ×2 (15:14→20:01)
[2022-10-09 16:50] LABS: BASOPHILS ABSOLUTE AUTO 0.01 K/mm3 (0.01-0.08); BASOPHILS PERCENT AUTO 0.1 % (0.1-1.2); EOSINOPHILS ABSOLUTE AUTO 0.01 K/mm3 (0.04-0.36); EOSINOPHILS PERCENT AUTO 0.1 (0.7-5.8); HEMATOCRIT 28.3 % (34.1-44.9); IMMATURE GRAN ABSOLUTE AUTO 0.03 K/mm3 (0.00-0.10); IMMATURE GRAN PERCENT AUTO 0.2 % (<=1.0); LYMPHOCYTES ABSOLUTE AUTO 1.62 K/mm3 (1.18-3.74); LYMPHOCYTES PERCENT AUTO 10.1 % (19.3-51.7); MEAN CORPUSCULAR HEMOGLOBIN 33.2 pg (25.6-32.2); MEAN CORPUSCULAR HGB CONC 33.6 g/dl (32.2-35.5); MEAN PLATELET VOLUME 10.6 fl (9.4-12.3); MONOCYTES ABSOLUTE AUTO 1.58 K/mm3 (0.24-0.36); MONOCYTES PERCENT AUTO 9.8 % (4.7-12.5); NEUTROPHILS ABSOLUTE AUTO 12.84 K/mm3 (1.56-6.13); NEUTROPHILS PERCENT AUTO 79.7 % (34.0-71.1); PLATELET COUNT,PLT 220 K/mm3 (182-369); RED BLOOD CELL COUNT 2.86 M/mm3 (3.98-5.22); WHITE BLOOD CELL COUNT,WBC 16.09 K/mm3 (3.98-10.04)
[2022-10-09 17:23] LABS: HEMOGLOBIN 9.5 gm/dl (11.2-15.7)
[2022-10-09] MEDS: Acetaminophen/oxyCODONE 325-5 MG Tab PO PRN (19:55)
[2022-10-09] MEDS: Prenatal Multivitamin with Calcium/Folic Acid/Iron Tab PO SCH (20:01)
[2022-10-09] MEDS: Sertraline 50 MG Tab PO SCH (20:01)
[2022-10-09] MEDS: valACYclovir 500 MG Tab PO SCH (20:02)
[2022-10-09] MEDS: Docusate Sodium 100 MG Cap PO PRN (20:02)
[2022-10-10] MEDS: Ketorolac 30 MG/ML SDV IVPUSH SCH (03:00)
[2022-10-10] MEDS: Acetaminophen/oxyCODONE 325-5 MG Tab PO PRN ×4 (03:01→20:57)
[2022-10-10] MEDS: Simethicone 80 MG Tab.Chew PO PRN ×3 (03:01→16:50)
[2022-10-10 06:09] LABS: BASOPHILS ABSOLUTE AUTO 0.02 K/mm3 (0.01-0.08); BASOPHILS PERCENT AUTO 0.1 % (0.1-1.2); EOSINOPHILS ABSOLUTE AUTO 0.13 K/mm3 (0.04-0.36); HEMATOCRIT 26.1 % (34.1-44.9); HEMOGLOBIN 8.7 gm/dl (11.2-15.7); IMMATURE GRAN ABSOLUTE AUTO 0.03 K/mm3 (0.00-0.10); IMMATURE GRAN PERCENT AUTO 0.2 % (<=1.0); LYMPHOCYTES ABSOLUTE AUTO 1.21 K/mm3 (1.18-3.74); MEAN CORPUSCULAR HEMOGLOBIN 33.6 pg (25.6-32.2); MEAN CORPUSCULAR HGB CONC 33.3 g/dl (32.2-35.5); MEAN CORPUSCULAR VOLUME 100.8 fl (79.4-94.8); MEAN PLATELET VOLUME 10.9 fl (9.4-12.3); MONOCYTES ABSOLUTE AUTO 1.63 K/mm3 (0.24-0.36); MONOCYTES PERCENT AUTO 12.1 % (4.7-12.5); NEUTROPHILS ABSOLUTE AUTO 10.41 K/mm3 (1.56-6.13); NEUTROPHILS PERCENT AUTO 77.6 % (34.0-71.1); PLATELET COUNT,PLT 182 K/mm3 (182-369); RED BLOOD CELL COUNT 2.59 M/mm3 (3.98-5.22); WHITE BLOOD CELL COUNT,WBC 13.43 K/mm3 (3.98-10.04)
[2022-10-10 08:03] LABS: SLIDE REVIEW ABNORMAL SMEAR
[2022-10-10] MEDS ORDERED: Prenatal Multivitamin with Calcium/Folic Acid/Iron Tab PO SCH (09:00)
[2022-10-10] MEDS ORDERED: valACYclovir 500 MG Tab PO SCH (09:00)
[2022-10-10] MEDS ORDERED: Sertraline 50 MG Tab PO SCH (09:00)
[2022-10-10] MEDS: Ibuprofen 600 MG Tab PO PRN ×2 (09:13→14:06)
[2022-10-10] MEDS: Levothyroxine 88 MCG Tab PO SCH (14:02)
[2022-10-10] MEDS: valACYclovir 500 MG Tab PO SCH (20:56)
[2022-10-10] MEDS: Sertraline 50 MG Tab PO SCH (20:56)
[2022-10-10] MEDS: Prenatal Multivitamin with Calcium/Folic Acid/Iron Tab PO SCH (20:56)
[2022-10-11] MEDS: Docusate Sodium 100 MG Cap PO PRN (00:04)
[2022-10-11] MEDS: Ibuprofen 600 MG Tab PO PRN ×3 (00:04→13:03)
[2022-10-11] MEDS: Simethicone 80 MG Tab.Chew PO PRN (00:04)
[2022-10-11] MEDS: Acetaminophen/oxyCODONE 325-5 MG Tab PO PRN ×3 (03:01→15:10)
[2022-10-11] MEDS: Levothyroxine 88 MCG Tab PO SCH (06:02)
== END 2022-10-11 17:25 | disposition home or self-care (01) | DRG 540 ==
LOC: JD.OB 05:14
PROVIDERS: ADMIT Obstetrics & Gynecology; ATTEND Obstetrics & Gynecology
PROC: 10D00Z1 Extraction of Products of Conception, Low, Open Approach (ICD-10-PCS; principal; 2022-10-09)
PROC: 3E0334Z Introduction of Serum, Toxoid and Vaccine into Peripheral Vein, Percutaneous Approach (ICD-10-PCS; 2022-10-09)
DX: O34.211 Maternal care for low transverse scar from previous cesarean delivery (principal); Z37.0 Single live birth; Z3A.38 38 weeks gestation of pregnancy; O34.13 Maternal care for benign tumor of corpus uteri, third trimester; D25.9 Leiomyoma of uterus, unspecified; O67.9 Intrapartum hemorrhage, unspecified; O99.344 Other mental disorders complicating childbirth; F41.9 Anxiety disorder, unspecified; F32.A Depression, unspecified; O99.284 Endocrine, nutritional and metabolic diseases complicating childbirth; E03.9 Hypothyroidism, unspecified; O98.32 Other infections with a predominantly sexual mode of transmission complicating childbirth; A60.09 Herpesviral infection of other urogenital tract; O26.893 Other specified pregnancy related conditions, third trimester; Z67.11 Type A blood, Rh negative; Z88.5 Allergy status to narcotic agent; Z88.2 Allergy status to sulfonamides
CPT/HCPCS: 36415; 59025; 85025; 85461; 86592; 86850; 86900; 86901; A9270-GY; J0690; J1885; J2274; J2590; J2765; J2790; J3490; J7120; J7121